=== PATIENT | female | born 1975 | race Caucasian/White ===

== ENCOUNTER 2023-04-16 01:32 | Emergency (ER) | payer OTHER ==
[2023-04-16 01:48] VITALS: BP 108/72; PULSE 104; RESP 20; TEMP 99.6; BMI 29.1
[2023-04-16] MEDS ORDERED: IBUPROFEN 400 MG TABLET (FP) PO ONE ×2 (02:12→02:16)
[2023-04-16] MEDS ORDERED: OSELTAMIVIR PHOSPHATE 75 MG CAPSULE PO ONE ×2 (02:12→02:53)
[2023-04-16] MEDS ORDERED: OSELTAMIVIR PHOSPHATE 75 MG CAPSULE ONE (03:08)
== END 2023-04-16 03:19 | disposition home or self-care (01) ==
LOC: JER 01:32
DX: M79.10 Myalgia, unspecified site (principal); R68.83 Chills (without fever); R09.81 Nasal congestion; R05.9 Cough, unspecified; J10.1 Influenza due to other identified influenza virus with other respiratory manifestations; J06.9 Acute upper respiratory infection, unspecified; Z20.822 Contact with and (suspected) exposure to COVID-19
CPT/HCPCS: 0241U-QW; 99283-25